=== PATIENT | female | born 1995 | race African-American/Black ===

== ENCOUNTER 2018-01-05 02:22 | Emergency (ER) | payer OTHER ==
[~2018-01-05] VITALS: Ht 165.1 cm; Wt 75.0 kg
[2018-01-05 02:24] VITALS: BP 124/81
[2018-01-05] MEDS ORDERED: LIDOCAINE HCL/PF 1% 5 ML VIAL INJ ONE (03:30)
[2018-01-05] MEDS ORDERED: LIDOCAINE HCL 1% 20 ML VIAL INJ ONE (03:30)
[2018-01-05] MEDS ORDERED: LIDOCAINE HCL 1% 10 ML VIAL INJ ONE (03:30)
== END 2018-01-05 03:58 | disposition home or self-care (01) ==
LOC: EMS 02:22
DX: S91.312A Laceration without foreign body, left foot, initial encounter (principal); F12.90 Cannabis use, unspecified, uncomplicated; W45.8XXA Other foreign body or object entering through skin, initial encounter; Y93.01 Activity, walking, marching and hiking; Y92.89 Other specified places as the place of occurrence of the external cause; Y99.8 Other external cause status
CPT/HCPCS: 12001; 99283; J3490; 29540